=== PATIENT | female | born 1980 | race Two or more races ===

== ENCOUNTER 2017-07-25 07:08 | Day surgery (SDC) | payer MEDICAID ==
[~2017-07-25 07:08] MED LIST: Bupivacaine 0.5% 50 ML MDV ONE
[2017-07-25] MEDS ORDERED: Lactated Ringers 1,000 ML IV SCH (07:30)
[2017-07-25] MEDS ORDERED: ceFAZolin 2 GM in Premix Bag 1 BAG IV ONE (08:15)
[2017-07-25] MEDS ORDERED: fentaNYL 100 MCG/2 ML SDV ONE (08:35)
[2017-07-25] MEDS ORDERED: Midazolam 1 MG/ML 2 ML SDV ONE (08:36)
[2017-07-25] MEDS ORDERED: Propofol 200 MG/20 ML SDV ONE (08:36)
[2017-07-25] MEDS ORDERED: Acetaminophen/HYDROcodone 325-5 MG Tab PO ONE (10:13)
[2017-07-25] MEDS ORDERED: Ketorolac 60 MG/2 ML SDV IM ONE (10:14)
[2017-07-25 10:19] VITALS: BP 134/91
--- NOTE | 2017-07-26 12:05 | OR ---
DATE OF PROCEDURE: 07/25/2017 [facility] PREOPERATIVE DIAGNOSES: 1. Right carpal tunnel. 2. Right middle trigger finger. POSTOPERATIVE DIAGNOSES: 1. Right carpal tunnel. 2. Right middle trigger finger. INTERVENTION: 1. Release of right transverse carpal ligament. 2. Release of right middle trigger finger. ESTIMATED BLOOD LOSS: Minimal. COMPLICATIONS: No complications. INDICATIONS: Adan is a 37-year-old and has been having some numbness and tingling sensation of both wrists. She had an EMG, which showed at least a moderate carpal tunnel on both sides. This not only works at night but even in daytime and also she had a trigger finger locking multiple times of her right hand major finger and she is quite active at home with some animals and at work. This seems to bother her on a daily basis. It was decided to proceed with release of her right transverse carpal ligament, release of her right major finger, which was a trigger finger. I did discuss with the patient the possible risks, benefits, alternatives, and complications of surgery. The nature of the procedure was explained. Possible complications include, but not excluded to, infection, phlebitis, nerve damage, vascular damage, possible persistent tingling, numbness, weakness, re-triggering, persistent pain, stiffness, pulmonary emboli, stroke, transfusion, heart attack, medical complication, possible , and I did explain the rehabilitation program. All questions were answered and I had informed consent. PROCEDURE IN DETAIL: The patient was brought to the OR. I did my markings at the right wrist and right major finger. She did receive antibiotics preoperatively. The FIREWORKS MAKER proceeded with slight IV sedation. The patient was put on her back. A tourniquet was applied to the right upper extremity in proximity. Sterile prep and dressing were done in the usual manner on the right hand. Time-out was taken to identify the correct surgical site. I did a local block with Marcaine 0.5 plain subcutaneous tissue, the transverse carpal ligament subcutaneous tissue of her wrist and also at the A1 denise at the base of her right major finger. The arm was elevated, tourniquet was raised to 250 mmHg. Incision was done with the scalpel starting at the wrist crease, going ulnar to the thenar muscle belly about 3 cm. Dissection was carried down to the subcutaneous tissue down to the transverse carpal ligament. A slight opening was done proximally on the transverse carpal ligament making sure not to violate the deep structures. A groove adapter was passed underneath the transverse carpal ligament and a gradual release was done. The ligament was quite thick. There was only very slight inflammation of the nerve and the nerve was intact. The whole site was washed with saline. The skin was closed with nylon 3-0 with simple sutures. The incision was done transverse at the A1 denise at the base over the major finger of the right hand about a centimeter. Dissection was carried down to the subcutaneous tissue down to the A1 denise, which was identified after retractors were installed. I stayed central to avoid the neurovascular bundle. The denise was released and had good gliding and without any triggering. The site was washed with saline. The skin was closed with nylon 3-0 with simple sutures and compressing dressing was applied. Tourniquet was released. Blood loss was minimal. There was no complication. The patient tolerated well the operation. She was sent to recovery room in good condition. Darrel Kennedy MD /[id number]
== END 2017-07-25 11:06 | disposition home or self-care (01) ==
LOC: JP.SDS 07:08
PROVIDERS: ATTEND Orthopaedic Surgery
DX: G56.01 Carpal tunnel syndrome, right upper limb (principal); M65.331 Trigger finger, right middle finger; F41.9 Anxiety disorder, unspecified; F32.9 Major depressive disorder, single episode, unspecified; Z79.899 Other long term (current) drug therapy
CPT/HCPCS: 26055; 64721; A9270; J0690; J1885; J2250; J2704; J3010; J7120

== ENCOUNTER 2017-09-18 18:56 | Emergency (ER) | payer MEDICAID ==
[2017-09-18 19:15] VITALS: BP 135/97
[2017-09-18] MEDS ORDERED: Acetaminophen/HYDROcodone 325-5 MG Tab PO ONE (19:59)
[2017-09-18] MEDS ORDERED: Ondansetron 4 MG Tab.DIS PO ONE (19:59)
--- NOTE | 2017-09-18 20:07 | EDM.PDOC ---
ED HPI GENERAL MEDICAL PROBLEM - General Chief Complaint: Upper Extremity Injury/Pain Stated Complaint: HURT RT HAND Time Seen by Provider: 09/18/17 19:51 Source of Information: Reports: Patient, RN Notes Reviewed History Limitations: Reports: No Limitations - History of Present Illness INITIAL COMMENTS - FREE TEXT/NARRATIVE: Brought in by her family, accompanied by her father and daughter Chief complaint Right hand pain/injury History of present illness 37-year-old female who had trigger finger release right long finger less than a month ago. 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 Immediate pain and she is unable to extend her right long finger. In addition to the pain she is feeling nauseated, she can't straighten the finger, she's concerned that she may have damaged the surgery she underwent. The pain is far more than she had when she had the trigger finger condition No other injuries Open wounds right hand Pain Score (Numeric/FACES): 7 - Related Data Allergies Allergy/AdvReac Type Severity Reaction Status Date / Time No Known Allergies Allergy Verified 09/18/17 19:13 Home Meds: Home Meds Amphetamine/Dextroamphetamine [Adderall XR] 30 mg PO DAILY 11/24/15 [History] Dextroamphetamine/Amphetamine [Adderall 20 mg Tablet] 20 mg PO .NOON 11/24/15 [ History] Sertraline [Zoloft] 100 mg PO DAILY 11/24/15 [History] hydrOXYzine Pamoate [Vistaril] 25 mg PO TID PRN 11/24/15 [History] Cyclobenzaprine [Flexeril] 10 mg PO TID PRN 07/24/17 [History] Gabapentin [Neurontin] 300 mg PO TID 07/24/17 [History] Naproxen [Naprosyn] 500 mg PO Q12HR 07/24/17 [History] buPROPion [Wellbutrin] 100 mg PO DAILY 07/24/17 [History] Multivitamin with Minerals [Multiple Vitamin] 1 tab PO DAILY 07/25/17 [History] Acetaminophen/HYDROcodone [Burbank 325-5 MG] 1 - 2 tab PO Q4H PRN #8 tab 09/18/17 [Rx] Past Medical History HEENT History: Reports: Other (See Below) Other HEENT History: eye injuries Genitourinary History: Reports: None 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: , 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 Neurological History: Reports: Concussion, Headaches, Chronic Psychiatric History: Reports: ADD, Anxiety, Depression Endocrine/Metabolic History: Reports: Obesity/BMI 30+ - Infectious Disease History Infectious Disease History: Reports: Chicken Pox - Past Surgical History HEENT Surgical History: Reports: Oral Surgery Female Surgical History: Reports: D&C Musculoskeletal Surgical History: Reports: Other (See Below) Other Musculoskeletal Surgeries/Procedures:: r hand carparl tunnel release and tendon repair in 08/28 Social & Family History - Tobacco Use Smoking Status *Q: Current Some Day Smoker Years of Tobacco use: 20 Packs/Tins Daily: 0.2 - Caffeine Use Caffeine Use: Reports: Energy Drinks - Alcohol Use Days Per Week of Alcohol Use: 1 Number of Drinks Per Day: 1 Total Drinks Per Week: 1 - Recreational Drug Use Recreational Drug Use: No Review of Systems - Review of Systems Review Of Systems: See Below Constitutional: Reports: No Symptoms Respiratory: Reports: No Symptoms GI/Abdominal: Reports: Nausea (From the pain). Denies: Vomiting Musculoskeletal: Reports: Hand Pain (Right side, at the site of the surgery, unable to extend right long finger) Skin: Reports: Other (No changes) Neurological: Reports: Numbness (Right hand) ED EXAM, GENERAL - Physical Exam Exam: See Below Exam Limited By: No Limitations General Appearance: Anxious, Moderate Distress, Other (Very uncomfortable and restless because of her hand, vital signs normal except for mild elevation blood pressure) Nose: Normal Inspection Head: Atraumatic, Normocephalic Respiratory/Chest: No Respiratory Distress, No Accessory Muscle Use Cardiovascular: Normal Peripheral Pulses, Regular Rate, Rhythm Extremities: Other (Tenderness right hand with flexion of the right long finger. Unable to extend. Scar tissue at the base of the right long finger and at the right wrist, appears to be healedHer, very tender to touch along the finger and hand, no deformity) Neurological: Alert, Oriented Psychiatric: Anxious Skin Exam: Warm, Dry, Intact, Normal Color, No Rash, Wound/Incision (Healed surgical wounds) Course - Vital Signs Last Recorded V/S: Last Vital Signs Temp 36.3 C 09/18/17 19:14 Pulse 88 09/18/17 19:14 Resp 18 09/18/17 19:14 BP 135/97 H 09/18/17 19:14 Pulse Ox 100 09/18/17 19:14 - Orders/Labs/Meds Orders: Active Orders 24 hr Category Date Time Status Hand Comp Min 3V Rt [CR] Stat Exams 09/18/17 20:00 Taken Meds: Medications Discontinued Medications Generic Name Dose Route Start Last Admin Trade Name Freq PRN Reason Stop Dose Admin Hydrocodone Bitart/Acetaminophen 2 tab 09/18/17 19:59 09/18/17 20:05 Burbank 325-5 Mg PO 09/18/17 20:00 2 tab ONETIME ONE Administration Ondansetron HCl 4 mg 09/18/17 19:59 09/18/17 20:06 Zofran Odt PO 09/18/17 20:00 4 mg ONETIME ONE Administration - Re-Assessments/Exams Free Text/Narrative Re-Assessment/Exam: 09/18/17 20:06 37-year-old female with recent trigger finger release right long finger. Acute injury of the hand today and unable to extend the same finger that was operated on. Examination no deformity but there is tenderness along proximal tendon. Does not appear to have a fracture although this is a possibility, more likely has some cause the scar tissue to get trapped in the tunnel. It appears that she has trigger finger again. The index was gently and passively extended, she had sudden sharp stabbing pain and then if she was able to flex her finger. She still has some pain and nausea but she significantly improved Hydrocodone/acetaminophen, 5/25, 2 tablets by mouth Ondansetron 4 mg by mouth X-ray right hand 09/18/17 20:26 X-ray negative Pain is improved but still some significant tenderness Recommended light duties only Follow-up with surgeon See discharge instructions Departure - Departure Time of Disposition: 20:27 Disposition: Home, Self-Care 01 Condition: Good Clinical Impression: Injury of flexor tendon of right hand Qualifiers: Encounter type: initial encounter Qualified Code(s): S66.801A - Unspecified injury of other specified muscles, fascia and tendons at wrist and hand level, right hand, initial encounter - Discharge Information Prescriptions: Acetaminophen/HYDROcodone [Burbank 325-5 MG] 1 - 2 tab PO Q4H PRN #8 tab PRN Reason: Moderate to severe pain Referrals: Roiko,Jourdan, OFFICE SUPPORT ASSISTANT [Primary Care Provider] - Forms: ED Department Discharge Additional Instructions: Injury to the right hand, causing injury to the right long finger extensor tendon. Depending on the type of surgery you have, this may have slowed the surgical healing. It is strongly recommended that you rest her hand and use it for light duties only, no heavy lifting,. Make an appointment with your surgeon for follow-up visit for recheck and determine when you can go back to regular work duties. - My Orders Last 24 Hours: My Active Orders 09/18/17 20:00 Hand Comp Min 3V Rt [CR] Stat - Assessment/Plan Last 24 Hours: My Active Orders 09/18/17 20:00 Hand Comp Min 3V Rt [CR] Stat
--- NOTE | 2017-09-19 09:13 | CR ---
Hand Comp Min 3V Rt CLINICAL HISTORY: Pain, injury FINDINGS: There is no acute fracture or dislocation of the hand. Jugular surfaces are smooth. Impression: Negative
== END 2017-09-18 20:42 | disposition home or self-care (01) ==
LOC: JP.ED 18:56
DX: S66.102A Unspecified injury of flexor muscle, fascia and tendon of right middle finger at wrist and hand level, initial encounter (principal); F17.210 Nicotine dependence, cigarettes, uncomplicated; F41.9 Anxiety disorder, unspecified; F32.9 Major depressive disorder, single episode, unspecified; Z79.899 Other long term (current) drug therapy; W55.32XA Struck by other hoof stock, initial encounter; Y99.0 Civilian activity done for income or pay
CPT/HCPCS: 73130; 99284; A9270

== ENCOUNTER 2019-02-23 18:11 | Emergency (ER) | payer SELFPAY ==
[2019-02-23 18:43] VITALS: BP 130/94; PULSE 117
--- NOTE | 2019-02-23 18:45 | EDM.PDOC ---
ED HPI GENERAL MEDICAL PROBLEM - General Chief Complaint: Bite:Animal, Insect Stated Complaint: RIGHT CALF INSECT/SPIDER BITE Time Seen by Provider: 02/23/19 18:47 Source of Information: Reports: Patient - History of Present Illness INITIAL COMMENTS - FREE TEXT/NARRATIVE: pt has a bite on the rt lower leg--lateral. The area is red and looks a little dark. This bite happened last nite and the area around it is about the size of a quarter. Onset: Other ( bite happened last nite. ) Duration: Hour(s): Location: Reports: Lower Extremity, Right Associated Symptoms: Reports: No Other Symptoms Left Leg Pain Score (Numeric/FACES): 3 - Related Data Allergies Allergy/AdvReac Type Severity Reaction Status Date / Time No Known Allergies Allergy Verified 02/23/19 18:19 Home Meds: Home Meds Amphetamine/Dextroamphetamine [Adderall XR] 30 mg PO DAILY 11/24/15 [History] Dextroamphetamine/Amphetamine [Adderall 20 mg Tablet] 20 mg PO .NOON 11/24/15 [ History] Sertraline [Zoloft] 100 mg PO DAILY 11/24/15 [History] hydrOXYzine Pamoate [Vistaril] 25 mg PO TID PRN 11/24/15 [History] Cyclobenzaprine [Flexeril] 10 mg PO TID PRN 07/24/17 [History] Gabapentin [Neurontin] 300 mg PO TID 07/24/17 [History] Naproxen [Naprosyn] 500 mg PO Q12HR 07/24/17 [History] buPROPion [Wellbutrin] 100 mg PO DAILY 07/24/17 [History] Multivitamin with Minerals [Multiple Vitamin] 1 tab PO DAILY 07/25/17 [History] Past Medical History HEENT History: Reports: Other (See Below) Other HEENT History: eye injuries Genitourinary History: Reports: None 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: , 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 Neurological History: Reports: Concussion, Headaches, Chronic Psychiatric History: Reports: ADD, Anxiety, Depression Endocrine/Metabolic History: Reports: Obesity/BMI 30+ - Infectious Disease History Infectious Disease History: Reports: Chicken Pox - Past Surgical History HEENT Surgical History: Reports: Oral Surgery Female Surgical History: Reports: D&C Musculoskeletal Surgical History: Reports: Other (See Below) Other Musculoskeletal Surgeries/Procedures:: r hand carparl tunnel release and tendon repair in 08/28 Social & Family History - Tobacco Use Smoking Status *Q: Current Every Day Smoker Years of Tobacco use: 20 Packs/Tins Daily: 0.2 Used Tobacco, but Quit: No Second Hand Smoke Exposure: No - Caffeine Use Caffeine Use: Reports: Coffee, Energy Drinks - Recreational Drug Use Recreational Drug Use: No ED ROS GENERAL - Review of Systems Review Of Systems: See Below Constitutional: Reports: Other (pt has a tender calf. ) HEENT: Reports: No Symptoms Respiratory: Reports: No Symptoms Cardiovascular: Reports: No Symptoms Endocrine: Reports: No Symptoms GI/Abdominal: Reports: No Symptoms Musculoskeletal: Reports: Other ( spot on the lateral aspect of the leg. She had a bite last evening. ) Skin: Reports: No Symptoms ED EXAM, ANIMAL BITE - Physical Exam Exam: See Below Text/Narrative:: pt arrived with a spot on the rt lower leg which is discolored in an area around the bite about the size of a quarter. Exam Limited By: No Limitations General Appearance: Alert Extremities: Other (pt has a spot around the bite about the size of a quarter. This is slightly dark and is tender. ) Psychiatric: Anxious Course - Vital Signs Last Recorded V/S: Last Vital Signs Temp 36.5 C 02/23/19 18:21 Pulse 117 H 02/23/19 18:21 Resp 16 02/23/19 18:21 BP 130/94 H 02/23/19 18:21 Pulse Ox 100 02/23/19 18:21 Departure - Departure Time of Disposition: 18:43 Disposition: Home, Self-Care 01 Condition: Fair Clinical Impression: Infected bite of lower leg - Discharge Information Referrals: Jourdan Traylor TAPE SEWING MACHINE OPERATOR [Primary Care Provider] - Forms: ED Department Discharge Care Plan Goals: soak twice daily, apply bacatracin ointment to area. clindomycin 300mg tid for 1 week, use yogurt and probiotic while on the antibiotic. If not improving in the next 4-5 days have it rechecked. Sepsis Event Note - Evaluation Sepsis Screening Result: No Definite Risk - Focused Exam Vital Signs: Vital Signs Temp Pulse Resp BP Pulse Ox 02/23/19 18:21 36.5 C 117 H 16 130/94 H 100 02/23/19 18:17 36.5 C 117 H 16 130/94 H 100 Date Exam was Performed: 02/23/19 Time Exam was Performed: 18:50
[2019-02-23] MEDS ORDERED: Clindamycin HCl 150 MG Cap PO ONE (19:00)
== END 2019-02-23 18:56 | disposition home or self-care (01) ==
LOC: JP.ED 18:11
DX: S80.861A Insect bite (nonvenomous), right lower leg, initial encounter (principal); L08.9 Local infection of the skin and subcutaneous tissue, unspecified; F32.9 Major depressive disorder, single episode, unspecified; F41.9 Anxiety disorder, unspecified; E66.9 Obesity, unspecified; Z68.29 Body mass index [BMI] 29.0-29.9, adult; F17.210 Nicotine dependence, cigarettes, uncomplicated; Z79.899 Other long term (current) drug therapy; W57.XXXA Bitten or stung by nonvenomous insect and other nonvenomous arthropods, initial encounter
CPT/HCPCS: 99281; A9270-GY

== ENCOUNTER 2019-03-30 18:27 | Emergency (ER) | payer MEDICAID ==
--- NOTE | 2019-03-30 19:10 | EDM.PDOC ---
ED HPI GENERAL MEDICAL PROBLEM - General Chief Complaint: ENT Problem Stated Complaint: BODY ACHES,SORE THROAT Time Seen by Provider: 03/30/19 18:57 Source of Information: Reports: Patient History Limitations: Reports: No Limitations - History of Present Illness INITIAL COMMENTS - FREE TEXT/NARRATIVE: Patient presents because of 3 or so weeks of progressive right sided neck and throat pain. Several weeks ago she developed a sore throat and some minor fever. That progressed over several days but at some point her symptoms began to improve. In the last week, she is begun to feel poorly again with fevers, chills, increasing right sided throat pain, neck swelling. It is painful to drink liquids or eat food. She is more uncomfortable when she is supine than when upright. She came tonight because her pain is steadily increasing. No nausea or vomiting. No cough or shortness of breath. No other recognized changes in health other than as noted. Duration: Week(s): (Three) Location: Reports: Neck Quality: Reports: Ache, Pressure Severity: Moderate Improves with: Reports: None Worsens with: Reports: Eating Associated Symptoms: Reports: Fever/Chills. Denies: Headaches throat Pain Score (Numeric/FACES): 7 - Related Data Allergies Allergy/AdvReac Type Severity Reaction Status Date / Time No Known Allergies Allergy Verified 03/30/19 19:51 Home Meds: Home Meds Amphetamine/Dextroamphetamine [Adderall XR] 30 mg PO DAILY 11/24/15 [History] Dextroamphetamine/Amphetamine [Adderall 20 mg Tablet] 20 mg PO .NOON 11/24/15 [ History] Sertraline [Zoloft] 100 mg PO DAILY 11/24/15 [History] hydrOXYzine Pamoate [Vistaril] 25 mg PO TID PRN 11/24/15 [History] Cyclobenzaprine [Flexeril] 10 mg PO TID PRN 07/24/17 [History] Gabapentin [Neurontin] 300 mg PO TID 07/24/17 [History] Naproxen [Naprosyn] 500 mg PO Q12HR 07/24/17 [History] buPROPion [Wellbutrin] 100 mg PO DAILY 07/24/17 [History] Multivitamin with Minerals [Multiple Vitamin] 1 tab PO DAILY 07/25/17 [History] Past Medical History HEENT History: Reports: Other (See Below) Other HEENT History: eye injuries Genitourinary History: Reports: None 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: , 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 Neurological History: Reports: Concussion, Headaches, Chronic Psychiatric History: Reports: ADD, Anxiety, Depression Endocrine/Metabolic History: Reports: Obesity/BMI 30+ - Infectious Disease History Infectious Disease History: Reports: Chicken Pox - Past Surgical History HEENT Surgical History: Reports: Oral Surgery Female Surgical History: Reports: D&C Musculoskeletal Surgical History: Reports: Other (See Below) Other Musculoskeletal Surgeries/Procedures:: r hand carparl tunnel release and tendon repair in 08/28 Social & Family History - Caffeine Use Caffeine Use: Reports: Coffee, Energy Drinks ED ROS ENT - Review of Systems Review Of Systems: See Below Constitutional: Reports: Fever, Chills, Malaise, Fatigue HEENT: Reports: Throat Pain, Other (Voice changes since problem began, she sounds muffled when she talks.) Respiratory: Reports: No Symptoms Cardiovascular: Reports: No Symptoms GI/Abdominal: Reports: No Symptoms Musculoskeletal: Reports: Neck Pain (Right sided.) ED EXAM, ENT - Physical Exam Exam: See Below Exam Limited By: No Limitations General Appearance: Moderate Distress Mouth/Throat: Dry Mucous Membrane, Muffled Voice, Peritonsillar Mass, Pharyngeal Erythema. No: Lip Swelling Neck: Lymphadenopathy (R) Respiratory/Chest: No Respiratory Distress Course - Vital Signs Last Recorded V/S: Last Vital Signs Temp 37.1 C 03/30/19 19:54 Pulse 123 H 03/30/19 19:54 Resp 12 03/30/19 19:54 BP 142/97 H 03/30/19 19:54 Pulse Ox 97 03/30/19 19:54 - Orders/Labs/Meds Orders: Active Orders 24 hr Category Date Time Status Saline Lock Insert [OM.PC] Routine Oth 03/30/19 20:09 Ordered Labs: Laboratory Tests 03/30/19 03/30/19 Range/Units 20:20 20:20 WBC 16.1 H (4.5-11.0) K/uL RBC 5.01 (3.30-5.50) M/uL Hgb 14.1 (12.0-15.0) g/dL Hct 42.3 (36.0-48.0) % MCV 84 (80-98) fL MCH 28 (27-31) pg MCHC 33 (32-36) % Plt Count 449 H (150-400) K/uL Neut % (Auto) 76 H (36-66) % Lymph % (Auto) 17 L (24-44) % [place] % (Auto) 6 (2-6) % Eos % (Auto) 0 L (2-4) % Baso % (Auto) 0 (0-1) % Sodium 134 L (140-148) mmol/L Potassium 3.5 L (3.6-5.2) mmol/L Chloride 97 L (100-108) mmol/L Carbon Dioxide 26 (21-32) mmol/L Anion Gap 14.5 H (5.0-14.0) mmol/L BUN 6 L (7-18) mg/dL Creatinine 0.8 (0.6-1.0) mg/dL Est Cr Clr Drug Dosing 74.67 mL/min Estimated GFR (MDRD) > 60 (>60) Glucose 94 (74-106) mg/dL Calcium 8.8 (8.5-10.1) mg/dL C-Reactive Protein 8.61 H (0.0-0.3) mg/dL Meds: Medications Discontinued Medications Generic Name Dose Route Start Last Admin Trade Name Freq PRN Reason Stop Dose Admin Clindamycin Phosphate 900 mg/ 106 mls @ 200 mls/hr 03/30/19 20:09 03/30/19 20 :49 Sodium Chloride IV 03/30/19 20:40 200 mls/hr ONETIME ONE Administration Sodium Chloride 1,000 mls @ 999 mls/hr 03/30/19 20:10 03/30/19 20:50 Normal Saline IV 03/30/19 21:10 999 mls/hr .BOLUS ONE Administration Sodium Chloride 100 mls @ 3 mls/sec 03/30/19 20:30 03/30/19 20:41 Normal Saline IV 3 mls/sec ASDIRECTED HAILEY Administration Iopamidol 100 ml 03/30/19 20:30 03/30/19 20:41 Isovue-300 (61%) IV 100 ml . DIRECTED HAILEY Administration Ketorolac Tromethamine 30 mg 03/30/19 20:11 03/30/19 20:21 Toradol IVPUSH 03/30/19 20:12 30 mg ONETIME ONE Administration Sodium Chloride 10 ml 03/30/19 20:09 03/30/19 20:50 Saline Flush FLUSH 10 ml ASDIRECTED PRN Administration Keep Vein Open Sodium Chloride 10 ml 03/30/19 20:28 03/30/19 20:40 Saline Flush FLUSH 03/30/19 20:29 10 ml ONETIME ONE Administration - Re-Assessments/Exams Free Text/Narrative Re-Assessment/Exam: 03/30/19 20:18 Patient appears uncomfortable. My suspicion is she has a peritonsillar abscess. She'll be given clindamycin 900 mg IV along with Toradol [address] scan of the neck and pharynx will be obtained. 03/31/19 02:52 Returned later to review CT results which do not show a peritonsillar abscess, only tonsillitis changes which are significant. She feels better after the medication here. Her WBCs were 16,000 but remainder of labs looked reasonable. She will be sent with a prescription for clindamycin 300 mg, 10 days worth, to be taken 3 times daily. Anti-inflammatory medications are reasonable to use for pain. Once she is feeling better, she could consider reviewing her case with ear nose and throat doctors. Given the severity of her symptoms this time, tonsillectomy could be a consideration for her. 03/31/19 02:54 Departure - Departure Time of Disposition: 21:53 Disposition: Home, Self-Care 01 Condition: Good Clinical Impression: Tonsillitis - Discharge Information *PRESCRIPTION DRUG MONITORING PROGRAM REVIEWED*: Not Applicable *COPY OF PRESCRIPTION DRUG MONITORING REPORT IN PATIENT BETTY: Not Applicable Instructions: Tonsillitis, [id number] Referrals: PCP,None [Primary Care Provider] - Forms: ED Department Discharge Additional Instructions: Continue naproxen tablets 3 times daily at home for comfort. Start clindamycin antibiotic capsules tomorrow, Monday. It will be important to finish this out to avoid feeling worse and get in a situation where you might need urgent surgery for your tonsils. Eventually when feeling better, it may be worth a question to an ear nose and throat surgeon about whether or not tonsils should be removed. Return to ER if feeling worse in anyway. Sepsis Event Note - Focused Exam Vital Signs: Vital Signs Temp Pulse Resp BP Pulse Ox 03/30/19 19:54 37.1 C 123 H 12 142/97 H 97 01/18/20 19:51 37.1 C 123 H 12 142/97 H 97 Date Exam was Performed: 03/31/19 Time Exam was Performed: 02:51 - My Orders Last 24 Hours: My Active Orders 03/30/19 20:09 Saline Lock Insert [OM.PC] Routine - Assessment/Plan Last 24 Hours: My Active Orders 03/30/19 20:09 Saline Lock Insert [OM.PC] Routine
[2019-03-30 19:54] VITALS: BP 142/97; PULSE 123
[2019-03-30] MEDS ORDERED: Clindamycin Phosphate 900 MG in Sodium Chloride 0.9% 100 ML IV ONE (20:09)
[2019-03-30] MEDS ORDERED: Sodium Chloride 0.9% 10 ML Syringe FLUSH PRN (20:09)
[2019-03-30] MEDS ORDERED: Sodium Chloride 0.9% 1,000 ML IV ONE (20:10)
[2019-03-30] MEDS ORDERED: Ketorolac 30 MG/ML SDV IVPUSH ONE (20:11)
[2019-03-30] MEDS ORDERED: Sodium Chloride 0.9% 10 ML Syringe FLUSH ONE (20:28)
[2019-03-30] MEDS ORDERED: Iopamidol 612 MG/ML 100 ML Bottle IV SCH (20:30)
[2019-03-30] MEDS ORDERED: Sodium Chloride 0.9% 100 ML IV SCH (20:30)
--- NOTE | 2019-03-30 21:31 | CRLCT ---
INDICATION: Right peritonsillar abscess TECHNIQUE: CT soft tissue of the neck was acquired with 100 cc Isovue-300 IV contrast. COMPARISON: None FINDINGS: Skull base: Unremarkable. Pharynx/Larynx/Trachea: Epiglottis is normal. The palatine tonsils are edematous and enlarged. No peritonsillar abscess present. Salivary glands: Unremarkable. Thyroid gland: Unremarkable. No significant nodules. Lymph nodes: Multiple enlarged bilateral lymph nodes present. Vessels: Unremarkable for age. Bones: Unremarkable for age. Misc: No inflammation, mass or fluid collection. Lung apices: Unremarkable. IMPRESSION: Relatively severe bilateral tonsillitis without abscess. There is marked reactive lymphadenopathy as well. Dictated by Jeff Diaz MD @ 03/30/2019 9:30:07 PM Please note that all CT scans at this facility use dose modulation, iterative reconstruction, and/or weight-based dosing when appropriate to reduce radiation dose to as low as reasonably achievable. Dictated by: Jeff Diaz MD @ 03/30/2019 21:30:15 (Electronically Signed)
== END 2019-03-30 22:12 | disposition home or self-care (01) ==
LOC: JP.ED 18:27
DX: J03.90 Acute tonsillitis, unspecified (principal); E66.9 Obesity, unspecified; F41.9 Anxiety disorder, unspecified; F32.9 Major depressive disorder, single episode, unspecified; Z98.890 Other specified postprocedural states; Z79.899 Other long term (current) drug therapy
CPT/HCPCS: 36415; 70491; 80048; 85025; 86140; 96361; 96365; 96375; 99284; J1885; J3490; J7030; J7050; Q9967

== ENCOUNTER 2019-09-27 03:33 | Emergency (ER) | payer MEDICAID ==
[2019-09-27 03:52] VITALS: BP 142/90; PULSE 76
--- NOTE | 2019-09-27 04:16 | EDM.PDOC ---
ED HPI GENERAL MEDICAL PROBLEM - General Chief Complaint: General Stated Complaint: ABD PAIN Time Seen by Provider: 09/27/19 04:07 Source of Information: Reports: Patient History Limitations: Reports: No Limitations - History of Present Illness INITIAL COMMENTS - FREE TEXT/NARRATIVE: Patient presents for evaluation of severe left upper quadrant abdominal pain which began around 2200 hrs. yesterday evening, 25 September. She had been doing usual activities today and over the last few days. The pain began gradually but rapidly and then was a gnawing, intense, sharp pain that did not change with any attempt at improving it. Finally after several hours, she had someone bring her here. She was in obvious distress at time of registration but after being put in a room, developed some diaphoresis and then suddenly the pain resolved and has not returned. She is never had anything like this before. Nothing at home made it any better. No other recent changes in health. Onset: Sudden Duration: Hour(s): (6) Location: Reports: Abdomen Quality: Reports: Sharp, Stabbing Severity: Severe Improves with: Reports: None Worsens with: Reports: Movement Associated Symptoms: Reports: No Other Symptoms Left Lower Anterior Chest Pain Score (Numeric/FACES): 0 - Related Data Allergies Allergy/AdvReac Type Severity Reaction Status Date / Time No Known Allergies Allergy Verified 09/27/19 03:43 Home Meds: Home Meds Amphetamine/Dextroamphetamine [Adderall XR] 30 mg PO DAILY 11/24/15 [History] Dextroamphetamine/Amphetamine [Adderall 20 mg Tablet] 20 mg PO DAILY 11/24/15 [History] Sertraline [Zoloft] 100 mg PO DAILY 11/24/15 [History] hydrOXYzine Pamoate [Vistaril] 25 mg PO TID PRN 11/24/15 [History] Cyclobenzaprine [Flexeril] 10 mg PO TID PRN 07/24/17 [History] Gabapentin [Neurontin] 300 mg PO TID PRN 07/24/17 [History] Naproxen [Naprosyn] 500 mg PO Q12HR PRN 07/24/17 [History] buPROPion [Wellbutrin] 100 mg PO DAILY 07/24/17 [History] Multivitamin with Minerals [Multiple Vitamin] 1 tab PO DAILY 07/25/17 [History] Past Medical History HEENT History: Reports: Other (See Below) Other HEENT History: eye injuries Genitourinary History: Reports: None 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: , 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 Neurological History: Reports: Concussion, Headaches, Chronic Psychiatric History: Reports: ADD, Anxiety, Depression Endocrine/Metabolic History: Reports: Obesity/BMI 30+ - Infectious Disease History Infectious Disease History: Reports: Chicken Pox - Past Surgical History HEENT Surgical History: Reports: Oral Surgery Female Surgical History: Reports: D&C Musculoskeletal Surgical History: Reports: Other (See Below) Other Musculoskeletal Surgeries/Procedures:: r hand carparl tunnel release and tendon repair in 08/28 Social & Family History - Tobacco Use Smoking Status *Q: Current Every Day Smoker Years of Tobacco use: 15 Packs/Tins Daily: 0.5 Used Tobacco, but Quit: No Second Hand Smoke Exposure: Yes - Caffeine Use Caffeine Use: Reports: Coffee, Soda - Alcohol Use Days Per Week of Alcohol Use: 2 Number of Drinks Per Day: 3 Total Drinks Per Week: 6 - Recreational Drug Use Recreational Drug Use: No ED ROS GENERAL - Review of Systems Review Of Systems: See Below Constitutional: Reports: Diaphoresis Respiratory: Reports: No Symptoms Cardiovascular: Reports: No Symptoms GI/Abdominal: Reports: Abdominal Pain (Left upper quadrant pain as described.). Denies: Constipation, Diarrhea, Nausea, Vomiting : Reports: No Symptoms Musculoskeletal: Reports: No Symptoms ED EXAM, GENERAL - Physical Exam Exam: See Below Free Text/Narrative:: This is an adult female lying on her right side curled up under a blanket comfortably as I enter the room. Exam Limited By: No Limitations General Appearance: Alert, No Apparent Distress Respiratory/Chest: No Respiratory Distress Cardiovascular: Regular Rate, Rhythm GI/Abdominal: Soft, Non-Tender, No Distention. No: Guarding, Rigid Course - Vital Signs Last Recorded V/S: Last Vital Signs Temp 35.5 C L 09/27/19 03:51 Pulse 76 09/27/19 03:51 Resp 16 09/27/19 03:51 BP 142/90 H 09/27/19 03:51 Pulse Ox 100 09/27/19 03:51 - Re-Assessments/Exams Free Text/Narrative Re-Assessment/Exam: 09/27/19 04:29 Her symptoms are completely resolved. There is absolutely no tenderness on palpation. I do not recommend any additional evaluation based on her appearance and age. On further questioning, she did state that over the last couple of days she had eaten a whole lot of pizza as her main food source. One possibility is that she had a transient intense ileus or semi-obstruction of her colon as that high-fat, high-calorie food was digested and eliminated. The episode did not sound like a kidney stone. It does not sound like anything cardiac or pulmonary related. Given her complete comfort at this time, she will be discharged. She can return at any time if symptoms return. Departure - Departure Time of Disposition: 04:21 Disposition: Home, Self-Care 01 Condition: Good Clinical Impression: Abdominal pain - Discharge Information Instructions: Abdominal Pain, Adult, [id number] Referrals: PCP,None [Primary Care Provider] - Forms: ED Department Discharge Additional Instructions: Avoid high fat/high calorie foods over the next 24 hours. The pain you had earlier likely was from material in your large intestine having difficulty moving forward. Once that obstruction-like problem cleared that eliminated your pain. If symptoms return, come back at any time for further evaluation. Sepsis Event Note (ED) - Evaluation Sepsis Screening Result: No Definite Risk - Focused Exam Vital Signs: Vital Signs Temp Pulse Resp BP Pulse Ox 09/27/19 03:51 35.5 C L 76 16 142/90 H 100
== END 2019-09-27 04:28 | disposition home or self-care (01) ==
LOC: JP.ED 03:33
DX: R10.12 Left upper quadrant pain (principal); F41.9 Anxiety disorder, unspecified; F32.9 Major depressive disorder, single episode, unspecified; F98.8 Other specified behavioral and emotional disorders with onset usually occurring in childhood and adolescence; E66.9 Obesity, unspecified; F17.210 Nicotine dependence, cigarettes, uncomplicated; Z68.28 Body mass index [BMI] 28.0-28.9, adult; Z79.899 Other long term (current) drug therapy
CPT/HCPCS: 99283

== ENCOUNTER 2020-01-10 00:14 | Emergency (ER) | payer MEDICAID ==
[2020-01-10] MEDS ORDERED: Ketorolac 60 MG/2 ML SDV IM ONE (01:10)
--- NOTE | 2020-01-10 01:12 | EDM.PDOC ---
ED HPI GENERAL MEDICAL PROBLEM - General Chief Complaint: Back Pain or Injury Stated Complaint: LOW RIGHT SIDE PAIN Time Seen by Provider: 01/10/20 01:07 Source of Information: Reports: Patient, Family, RN Notes Reviewed History Limitations: Reports: No Limitations - History of Present Illness INITIAL COMMENTS - FREE TEXT/NARRATIVE: 39-year-old female presents emergency department today complaint of right-sided flank pain, she states it come on mostly today it is a sharp stabbing pain predominantly in her back she is never had a history of kidney stones no nausea no difficulty with urination no fevers denies any trauma or lifting injury right lower back Pain Score (Numeric/FACES): 7 - Related Data Allergies Allergy/AdvReac Type Severity Reaction Status Date / Time No Known Allergies Allergy Verified 01/10/20 00:51 Home Meds: Home Meds Amphetamine/Dextroamphetamine [Adderall XR] 30 mg PO DAILY 11/24/15 [History] Dextroamphetamine/Amphetamine [Adderall 20 mg Tablet] 20 mg PO DAILY 11/24/15 [History] Sertraline [Zoloft] 100 mg PO DAILY 11/24/15 [History] hydrOXYzine Pamoate [Vistaril] 25 mg PO TID PRN 11/24/15 [History] Cyclobenzaprine [Flexeril] 10 mg PO TID PRN 07/24/17 [History] Gabapentin [Neurontin] 300 mg PO TID PRN 07/24/17 [History] Naproxen [Naprosyn] 500 mg PO Q12HR PRN 07/24/17 [History] buPROPion [Wellbutrin] 100 mg PO DAILY 07/24/17 [History] Multivitamin with Minerals [Multiple Vitamin] 1 tab PO DAILY 07/25/17 [History] Past Medical History HEENT History: Reports: Impaired Vision, Other (See Below) Other HEENT History: eye injuries Genitourinary History: Reports: Pyelonephritis 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: , 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 Musculoskeletal History: Reports: Fibromyalgia Neurological History: Reports: Concussion, Headaches, Chronic Psychiatric History: Reports: ADD, Anxiety, Depression, Suicide Attempt Endocrine/Metabolic History: Reports: Obesity/BMI 30+ - Infectious Disease History Infectious Disease History: Reports: Chicken Pox - Past Surgical History HEENT Surgical History: Reports: Oral Surgery Female Surgical History: Reports: D&C Musculoskeletal Surgical History: Reports: Other (See Below) Other Musculoskeletal Surgeries/Procedures:: r hand carparl tunnel release and tendon repair in 08/28 Social & Family History - Tobacco Use Tobacco Use Status *Q: Current Every Day Tobacco User Years of Tobacco use: 15 Packs/Tins Daily: 0.1 - Caffeine Use Caffeine Use: Reports: Soda - Recreational Drug Use Recreational Drug Use: No ED ROS GENERAL - Review of Systems Review Of Systems: See Below Constitutional: Reports: No Symptoms Respiratory: Reports: No Symptoms Cardiovascular: Reports: No Symptoms GI/Abdominal: Denies: Nausea : Reports: Flank Pain ED EXAM, GI/ABD - Physical Exam Exam: See Below Exam Limited By: No Limitations General Appearance: Alert, Mild Distress Respiratory/Chest: No Respiratory Distress GI/Abdominal Exam: Soft, Non-Tender Back Exam: Normal Inspection, Full Range of Motion, CVA Tenderness (R). No: CVA Tenderness (L) Course - Vital Signs Last Recorded V/S: Last Vital Signs Temp 95.9 F L 01/10/20 00:55 Pulse 88 01/10/20 00:55 Resp 17 01/10/20 00:55 BP 145/101 H 01/10/20 00:55 Pulse Ox 100 01/10/20 00:55 - Orders/Labs/Meds Labs: Laboratory Tests 01/10/20 Range/Units 00:53 Urine Color Yellow (YELLOW) Urine Appearance Slightly cloudy A (CLEAR) Urine pH 7.5 (5.0-8.0) Ur Specific [place] 1.025 (1.008-1.030) Urine Protein Negative (NEGATIVE) mg/dL Urine Glucose (UA) Negative (NEGATIVE) mg/dL Urine Ketones Negative (NEGATIVE) mg/dL Urine Occult Blood Negative (NEGATIVE) Urine Nitrite Negative (NEGATIVE) Urine Bilirubin Negative (NEGATIVE) Urine Urobilinogen 0.2 (0.2-1.0) EU/dL Ur Leukocyte Esterase Negative (NEGATIVE) Urine RBC 0-5 (0-5) Urine WBC 0-5 (0-5) Ur Epithelial Cells Rare Amorphous Sediment Many Urine Bacteria Many Urine Mucus Not seen Meds: Medications Discontinued Medications Generic Name Dose Route Start Last Admin Trade Name Freq PRN Reason Stop Dose Admin Cyclobenzaprine HCl 10 mg 01/10/20 01:32 01/10/20 01:35 Flexeril PO 01/10/20 01:33 10 mg ONETIME ONE Administration Ketorolac Tromethamine 60 mg 01/10/20 01:10 01/10/20 01:22 Toradol IM 01/10/20 01:11 60 mg ONETIME ONE Administration Departure - Departure Time of Disposition: 02:18 Disposition: Home, Self-Care 01 Condition: Good Clinical Impression: Low back pain Qualifiers: Chronicity: acute Back pain laterality: right Sciatica presence: without sciatica Qualified Code(s): M54.5 - Low back pain - Discharge Information Instructions: Acute Back Pain, Adult Referrals: PCP,None [Primary Care Provider] - Forms: ED Department Discharge Additional Instructions: Continue to use ibuprofen for baseline pain control use Flexeril as needed for muscle spasms, please followup with your primary care provider in 3-5 days if not better, please call return to the emergency department with worsening of symptoms. Sepsis Event Note (ED) - Evaluation Sepsis Screening Result: No Definite Risk - Focused Exam Vital Signs: Vital Signs Temp Pulse Resp BP Pulse Ox 01/10/20 00:55 95.9 F L 88 17 145/101 H 100 01/10/20 00:54 95.9 F L 88 17 145/101 H 100 - Assessment/Plan Plan: Assessment Acuity = acute Site and laterality = low back. Etiology = probable lifting injury Manifestations = none Location of injury = Home Lab values = urinalysis unremarkable Plan Good improvement combination Toradol Flexeril discharge home Flexeril 10 mg p.o. 3 times daily as needed total #15 follow-up primary care 3 to 5 days if not better This note was dictated using [employer] voice recognition software please call with any questions on syntax or grammar.
[2020-01-10 01:16] VITALS: BP 145/101; PULSE 88
[2020-01-10] MEDS ORDERED: Cyclobenzaprine 10 MG Tab PO ONE (01:32)
== END 2020-01-10 02:23 | disposition home or self-care (01) ==
LOC: JP.ED 00:14
DX: M54.5 Low back pain (principal); F41.9 Anxiety disorder, unspecified; F32.9 Major depressive disorder, single episode, unspecified; E66.9 Obesity, unspecified; F98.8 Other specified behavioral and emotional disorders with onset usually occurring in childhood and adolescence; F17.210 Nicotine dependence, cigarettes, uncomplicated; Z68.29 Body mass index [BMI] 29.0-29.9, adult
CPT/HCPCS: 81001; 96372; 99284; A9270; J1885